=== PATIENT | female | born 1955 | race Two or more races ===

== ENCOUNTER 2019-09-18 09:18 | Day surgery (SDC) | payer OTHER ==
[2019-09-14 15:27] VITALS: BMI 23.3
[2019-09-18] MEDS ORDERED: PROPOFOL 20 ML ONE ×3 (10:35)
[2019-09-18 12:12] VITALS: TEMP 98.2
[2019-09-18 12:18] VITALS: BP 133/70; PULSE 97
--- NOTE | 2019-09-20 16:45 | PATH ---
Surgical Pathology Report Patient Name: DANAY WOLFE [facility]. Rec. #: [id number] /Age/Gender: 1955 (Age: 64) / F Account: [id number] Location: [facility] Taken: 09/18/2019 Received: 09/18/2019 Reported: 09/20/2019 Physicians: Lincoln Mi M.D. Specimen(s) Received A: HOT SNARE POLYPECTOMY CECUM B: BIOPSY CECAL FOLD Clinical History History of polyps Postoperative diagnoses: Diverticulosis, colon polyp Final Diagnosis A. CECUM, POLYP, HOT SNARE POLYPECTOMY: TUBULAR ADENOMA. B. CECAL FOLD, BIOPSIES: COLONIC MUCOSA WITH NO PATHOLOGIC FINDINGS. Electronically Signed Nyasia Saeed M.D. Gross Description A. Received in formalin, labeled "hot snare polypectomy cecum" are 2 calderon, polypoid portions of soft tissue averaging 0.6 cm. in greatest dimension. The specimens are submitted in toto in one cassette. B. Received in formalin, labeled "biopsy cecal fold" is a calderon, irregular portion of soft tissue measuring 0.3 cm. in greatest dimension. The specimen is submitted in toto in one cassette. DL09/19/2019 saudi09/19/2019
== END 2019-09-18 11:32 | disposition home or self-care (01) ==
LOC: FASU-ENDO 09:18
PROVIDERS: ATTEND Internal Medicine Gastroenterology
PROC: 0DBH8ZX Excision of Cecum, Via Natural or Artificial Opening Endoscopic, Diagnostic (ICD-10-PCS; 2019-09-18)
PROC: 0DBH8ZX Excision of Cecum, Via Natural or Artificial Opening Endoscopic, Diagnostic (ICD-10-PCS; principal; 2019-09-18 10:33)
DX: Z86.010 Personal history of colon polyps (principal); D12.0 Benign neoplasm of cecum; K57.30 Diverticulosis of large intestine without perforation or abscess without bleeding
CPT/HCPCS: 88305-TC